=== PATIENT | male | born 2000 | race Caucasian/White ===

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

== ENCOUNTER 2024-06-27 13:30 | Emergency (ER) | payer OTHER ==
[~2024-06-27] VITALS: Ht 182.9 cm; Wt 122.5 kg
[~2024-06-27 13:30] MED LIST changes: +ONDA4ODT MM
[2024-06-27] MEDS ORDERED: NS 1,000 ML IV SCH (13:50)
[2024-06-27 15:00] VITALS: BP 149/91
== END 2024-06-27 15:14 | disposition home or self-care (01) ==
LOC: ER 13:30
DX: R55 Syncope and collapse (principal); F17.200 Nicotine dependence, unspecified, uncomplicated
CPT/HCPCS: 71045; 73600; 82947; 85379; 93005; 93010; 96360; 99284-25; J7030

== ENCOUNTER 2024-07-04 05:20 | Emergency (ER) | payer OTHER ==
[~2024-07-04] VITALS: Ht 188 cm; Wt 130.2 kg
[2024-07-04] MEDS ORDERED: Meclizine HCl 25 MG Tab PO ONE (06:05)
[2024-07-04 06:09] VITALS: BP 141/84
== END 2024-07-04 06:30 | disposition home or self-care (01) ==
LOC: ER 05:20
DX: R42 Dizziness and giddiness (principal); F17.200 Nicotine dependence, unspecified, uncomplicated
CPT/HCPCS: 93005; 93010; 99284-25; A9270